=== PATIENT | female | born 1940 | race Native Hawaiian/Other Pacific Islander ===

== ENCOUNTER 2017-01-23 14:23 | Outpatient (CLI) | payer OTHER ==
[~2017-01-23 14:23] MED LIST: D350000 IU OR; LEVO0.1519 PO; MOBIC7.5 M1 PO; RANI150T78 PO; ZANTAC 75 PO; ZIAC PO
== END 2017-01-24 02:03 | disposition home or self-care (01) ==
LOC: MAMMO 14:23
DX: Z12.31 Encounter for screening mammogram for malignant neoplasm of breast (principal)
CPT/HCPCS: G0202-TC

== ENCOUNTER 2018-03-06 09:42 | Outpatient (CLI) | payer OTHER | END 2018-03-06 21:56 | disposition home or self-care (01) | LOC: MAMMO 09:42 | DX: Z12.31 Encounter for screening mammogram for malignant neoplasm of breast (principal) ==

== ENCOUNTER 2019-11-18 12:25 | Outpatient (CLI) | payer OTHER | END 2019-11-18 20:16 | disposition home or self-care (01) | LOC: RAD 12:25 | DX: Z00.00 Encounter for general adult medical examination without abnormal findings (principal); L03.818 Cellulitis of other sites; I10 Essential (primary) hypertension; E03.8 Other specified hypothyroidism; R53.81 Other malaise; Z79.899 Other long term (current) drug therapy; M79.675 Pain in left toe(s) ==